=== PATIENT | male | born 1980 ===

== ENCOUNTER 2017-09-21 17:58 | Emergency (ER) | payer MEDICAID, OTHER ==
[2017-09-21 18:42] VITALS: RESP 18
[2017-09-21] MEDS ORDERED: Sodium Chloride 0.9% Inh Soln (3mL) UD INH ONE (21:11)
--- NOTE | 2017-09-21 21:16 | C.PDOC ---
History Of Present Illness 36 y/o male presents to the ER c/o watery eyes, runny nose, nasal congestion, dry coughing, and decreased taste for few days. Pt is also c/o of 2-3 episodes of diarrhea each day, eating and drinking well. Pt denies having fever. HPI: Influenza Time Seen by Provider: 09/21/17 20:14 Chief Complaint: Cough, Cold, Congestion History Per: Patient Exam Limitations: no limitations Onset/Duration Of Symptoms: Days Symptoms include: cough, nasal congestion. denies: difficulty breathing Risk factors for flu complications: No: adult > 65 years Past Medical History Reviewed: Historical Data, Nursing Documentation, Vital Signs Vital Signs: Last Vital Signs Temp 98 F 09/21/17 18:40 Pulse 69 09/21/17 18:40 Resp 18 09/21/17 18:40 BP 134/84 09/21/17 18:40 Pulse Ox 98 09/21/17 18:40 - Medical History PMH: Bronchitis Other Surgeries: Hx of surgeries - [facility] Procedures INJECT/INFUSE NEC (11/03/13) OTHER SKIN & SUBQ I D (11/27/13) TETANUS TOXOID ADMINIST (11/27/13) Family History: States: No Known Family Hx - Social History Hx Alcohol Use: Yes Hx Substance Use: No - Immunization History Hx Tetanus Toxoid Vaccination: No Hx Influenza Vaccination: No Hx Pneumococcal Vaccination: No Review Of Systems Except As Marked, All Systems Reviewed And Found Negative. Constitutional: Negative for: Fever, Chills ENT: Positive for: Nose Discharge, Nose Congestion Respiratory: Positive for: Cough, Pleuritic Pain Physical Exam - Physical Exam Appears: Non-toxic, Other (uncomfortable,coughing) Skin: Normal Color, Warm, Dry Head: Atraumatic, Normacephalic Eye(s): bilateral: Other (watery, erythematous eyes) Ear(s): Bilateral: Normal Nose: Other (nasal congestion) Oral Mucosa: Moist Throat: Erythema, No Exudate Neck: Supple Chest: Symmetrical Cardiovascular: Rhythm Regular Respiratory: Normal Breath Sounds, No Rales, No Rhonchi, No Wheezing, Other ( coughing persistently) Gastrointestinal/Abdominal: Soft, No Tenderness Neurological/Psych: Oriented x3, Normal Speech Medical Decision Making Medical Decision Making: Plan: --Sudafed PO --Claritin PO saline nebulizer 2215 pt with greatly decreased coughing after saline neb. feeling less uncomfortable. d/c home with meds,. f/u clinic - ECG O2 Sat by Pulse Oximetry: 98 Disposition Counseled Patient/Family Regarding: Diagnosis, Need For Followup, Rx Given - Disposition Referrals: [facility] [Outside] Disposition: HOME/ ROUTINE Disposition Time: 22:19 Condition: IMPROVED Additional Instructions: Drink increased fluids. Take Zyrtec D as prescribed. Follow up in medical clinic. Try to avoid substances and environment that worsen symptoms. Prescriptions: Cetirizine HCl/Pseudoephedrine [Zyrtec-D Tablet] 1 each PO BID #[id number] Instructions: Upper Respiratory Infection (ED), Seasonal Allergies (DC) Forms: [employer] (Irish), General Discharge Instructions - Clinical Impression Clinical Impression: Upper respiratory infection, Seasonal allergies - PA / [employer] / Resident Statement MD/DO has reviewed & agrees with the documentation as recorded. - Scribe Statement The provider has reviewed the documentation as recorded by the Jerry Steele Provider Attestation All medical record entries made by the Ryanibnils were at my direction and personally dictated by me. I have reviewed the chart and agree that the record accurately reflects my personal performance of the history, physical exam, medical decision making, and the department course for this patient. I have also personally directed, reviewed, and agree with the discharge instructions and disposition.
[2017-09-21] MEDS ORDERED: Sodium Chloride 0.9% 1,000 ML ONE (21:21)
[2017-09-21 22:26] VITALS: BP 124/76; PULSE 72; TEMP 99; O2SAT 96
== END 2017-09-21 22:39 | disposition home or self-care (01) ==
LOC: C.ER 17:58
DX: J06.9 Acute upper respiratory infection, unspecified (principal); J30.2 Other seasonal allergic rhinitis